=== PATIENT | female | born 1985 | race African-American/Black ===

== ENCOUNTER 2018-11-18 09:38 | Emergency (ER) | payer SELFPAY ==
[~2018-11-18] VITALS: Ht 149.9 cm; Wt 67.4 kg
[2018-11-18 09:40] VITALS: BP 110/66
--- NOTE | 2018-11-18 09:51 | NUR ---
33 Y/O FEMALE PRESENTS TO ED WITH C/O COUGH. " I WAS AT [facility] A WEEK AGO. THEY SAID I HAD AN UPPER RESPIRATORY INFECTION. I'M STILL COUGHING.." NO ACUTE DISTRESS NOTED. NO C/O N/V/D, TRAUMA, SYNCOPE, CP.
--- NOTE | 2018-11-18 10:45 | NUR ---
Patient/Caregiver given discharge instructions and they have confirmed that they understand the instructions. Patient ambulatory with steady gait. PT LEFT WITH ALL PERSONAL BELONGINGS.
== END 2018-11-18 10:47 | disposition home or self-care (01) ==
LOC: ED 10:35
DX: J00 Acute nasopharyngitis [common cold] (principal)
CPT/HCPCS: 71046; 99283

== ENCOUNTER 2018-11-19 15:25 | Emergency (ER) | payer SELFPAY ==
[~2018-11-19] VITALS: Ht 149.9 cm; Wt 66.0 kg
[~2018-11-19 15:25] MED LIST: prednisOLONE 15 MG/5 ML ORAL SOLN PO ONE
[2018-11-19 15:35] VITALS: BP 115/73
== END 2018-11-19 16:47 | disposition home or self-care (01) ==
LOC: ED 16:17
DX: B34.9 Viral infection, unspecified (principal); J00 Acute nasopharyngitis [common cold]
CPT/HCPCS: 99283; J7510